=== PATIENT | female | born 1970 | race Caucasian/White ===

== ENCOUNTER 2018-03-04 16:02 | Emergency (ER) | payer OTHER ==
[~2018-03-04] VITALS: Ht 162.6 cm; Wt 70.8 kg
[~2018-03-04 16:02] MED LIST: DAILY VALUE1 EACH PO; LORAZEPAM1 MG PO; MECLIZINE HCL25 MG PO; NORCO 5-325 TA1 EACH PO
[2018-03-04] MEDS ORDERED: ASPIRIN325 MG PO (16:36)
--- NOTE | 2018-03-05 07:11 | EKG ---
[facility] [address] [facility] [place], [place] [address] Signed Normal sinus rhythm Normal ECG No previous ECGs available Confirmed by MARTELL RICHMOND MD [id number] on 03/05/2018 7:11:24 AM Electronically Signed By: MARTELL RICHMOND MD 03/05/18 0711 PATIENT NAME: TREY HARP Electrocardiogram DATE OF : 66 PHYSICIAN: MARTELL RICHMOND MD REPORT #: [id number] REPORT IS CONFIDENTIAL AND NOT TO BE RELEASED WITHOUT AUTHORIZATION
== END 2018-03-04 17:47 | disposition home or self-care (01) ==
LOC: ED 16:02
DX: R07.89 Other chest pain (principal); F17.200 Nicotine dependence, unspecified, uncomplicated
CPT/HCPCS: 71046; 80053; 84484; 85025; 85379; 93005; 93010; 99284